=== PATIENT | male | born 1990 | race Hispanic/Latino ===

== ENCOUNTER 2021-10-26 00:02 | Emergency (ER) | payer SELFPAY ==
[2021-10-26 01:56] LABS: #Basophils 0.1 thou/uL (0.0-0.2); #Eosinphils 0.3 thou/uL (0.0-0.7); #Lymphocytes 2.4 thou/uL (1.20-3.40); #Monocytes 0.7 thou/uL (0.11-0.59); #Neutrophils 3.1 thou/uL (1.40-6.50); %Basophils 1.2 % (0.0-1.0); %Eosinophils 4.5 % (0.0-10.0); %Lymphocytes 36.4 % (21.0-51.0); %Monocytes 11.2 % (0.0-10.0); %Neutrophils 46.7 % (42.0-75.0); Hemoglobin 16.8 g/dL (14.0-18.0); Mean Corpuscular HGB CONC 35.6 g/dL (32.0-36.0); Mean Corpuscular Hemoglobin 34.5 pg (27.0-31.0); Mean Corpuscular Volume 96.9 fL (78.0-98.0); Mean Platelet Volume 8.9 fL (7.4-10.4); Platelet Count 220 thou/uL (130-400); RBC Distribution Width 12.2 % (11.5-14.5); Red Blood Cell (RBC) Count 4.86 mill/uL (4.70-6.10); White Blood Cell (WBC) Count 6.6 thou/uL (4.8-10.8)
[2021-10-26 02:05] LABS: ALT (SGPT) 14 U/L (8-55); AST (SGOT) 17 U/L (5-34); Albumin 4.2 g/dL (3.5-5.0); Alkaline Phosphatase 85 U/L (40-110); Anion Gap 11 mmol/L (10-20); BUN (Urea Nitrogen) 11 mg/dL (8.9-20.6); Bilirubin, Total 1.2 mg/dL (0.2-1.2); Calc. Creatinine Clearance 0 mL/min (70-130); Calcium 8.7 mg/dL (7.8-10.44); Carbon Dioxide 25 mmol/L (22-29); Chloride 106 mmol/L (98-107); Globulin 2.5 g/dL (2.4-3.5); Glucose 104 mg/dL (70-105); Lipase 15 U/L (8-78); Potassium 3.7 mmol/L (3.5-5.1); Protein, Total 6.7 g/dL (6.0-8.3); Sodium 138 mmol/L (136-145)
== END 2021-10-26 03:08 | disposition home or self-care (01) ==
LOC: ERS 00:02
DX: R10.11 Right upper quadrant pain (principal); Z87.19 Personal history of other diseases of the digestive system
CPT/HCPCS: 36415; 80053; 83690; 85025; 99284

== ENCOUNTER 2021-11-09 14:51 | Observation (INO) | payer SELFPAY ==
[2021-11-09 15:14] LABS: Bilirubin Negative (Negative); Blood, Urine Negative (Negative); Clarity Clear (Clear); Glucose, Urine (Dipstick) Normal (Negative); Ketone, Urine Negative (Negative); Leukocyte Negative Leu/uL (Negative); Nitrite Negative (Negative); Protein, Urine (Dipstick) Negative (Neg-Trace); Specific Gravity, Urine 1.002 (1.002-1.036); Urobilinogen Normal mg/dL (Less than 2)
[2021-11-09 16:40] LABS: #Eosinphils 0.2 thou/uL (0.0-0.7); #Lymphocytes 1.8 thou/uL (1.20-3.40); #Monocytes 0.6 thou/uL (0.11-0.59); #Neutrophils 3.3 thou/uL (1.40-6.50); %Basophils 0.8 % (0.0-1.0); %Eosinophils 3.6 % (0.0-10.0); %Lymphocytes 30.1 % (21.0-51.0); %Monocytes 9.5 % (0.0-10.0); %Neutrophils 55.9 % (42.0-75.0); Hemoglobin 17.3 g/dL (14.0-18.0); Mean Corpuscular HGB CONC 35.9 g/dL (32.0-36.0); Mean Corpuscular Hemoglobin 33.7 pg (27.0-31.0); Mean Corpuscular Volume 93.9 fL (78.0-98.0); Mean Platelet Volume 8.2 fL (7.4-10.4); Platelet Count 250 thou/uL (130-400); RBC Distribution Width 11.8 % (11.5-14.5); Red Blood Cell (RBC) Count 5.13 mill/uL (4.70-6.10)
[2021-11-09 17:03] LABS: ALT (SGPT) 30 U/L (8-55); AST (SGOT) 21 U/L (5-34); Albumin 4.6 g/dL (3.5-5.0); Alkaline Phosphatase 87 U/L (40-110); Anion Gap 15 mmol/L (10-20); BUN (Urea Nitrogen) 10 mg/dL (8.9-20.6); Bilirubin, Total 1.6 mg/dL (0.2-1.2); Calc. Creatinine Clearance 0 mL/min (70-130); Calcium 8.9 mg/dL (7.8-10.44); Carbon Dioxide 25 mmol/L (22-29); Chloride 103 mmol/L (98-107); Globulin 2.8 g/dL (2.4-3.5); Glucose 91 mg/dL (70-105); Lipase 9 U/L (8-78); Potassium 4.1 mmol/L (3.5-5.1); Protein, Total 7.4 g/dL (6.0-8.3); Sodium 139 mmol/L (136-145)
[2021-11-09] MEDS ORDERED: Ondansetron PF 4 MG/2 ML Vial ONE (17:06)
[2021-11-09] MEDS ORDERED: Ketorolac Tromethamine 30 MG/ML VIAL ONE (17:06)
[2021-11-09] MEDS ORDERED: Acetaminophen 325 MG TAB PO PRN (18:55)
[2021-11-09] MEDS ORDERED: Ondansetron ODT 4 MG TAB PO PRN (18:55)
[2021-11-09] MEDS ORDERED: Morphine 2 MG/ML VIAL SLOW IVP PRN (18:59)
[2021-11-09 19:20] LABS: SARS-CoV-2 NAA Rapid Test Not Detected (NotDetected)
[2021-11-09 19:46] VITALS: BMI 25.5
[2021-11-09] MEDS: Lactated Ringer's 1,000 ML IV SCH (20:22)
[2021-11-09] MEDS: HYDROcodone/Acetaminophen 5/325 mg Tablet PO PRN (23:13)
[2021-11-10] MEDS: HYDROcodone/Acetaminophen 5/325 mg Tablet PO PRN (05:10)
[2021-11-10] MEDS: Lactated Ringer's 1,000 ML IV SCH ×2 (05:10→15:29)
[2021-11-10] MEDS ORDERED: Midazolam HCl 2 mg/2 ml Vial ONE ×2 (08:09→08:34)
[2021-11-10] MEDS ORDERED: Fentanyl 100 MCG/2 ML VIAL ONE ×2 (08:34→09:43)
[2021-11-10] MEDS ORDERED: Iopamidol 30 ML ONE (09:43)
[2021-11-10] MEDS ORDERED: Ketorolac Tromethamine 30 MG/ML VIAL ONE (10:11)
[2021-11-10] MEDS ORDERED: Dexamethasone 20 MG/5 ML VIAL ONE (10:11)
[2021-11-10] MEDS ORDERED: PROPOFOL 200 MG/20 ML VIAL ONE (10:11)
[2021-11-10] MEDS ORDERED: Ondansetron PF 4 MG/2 ML Vial ONE (10:11)
[2021-11-10] MEDS ORDERED: Lidocaine 1% PF 5 ML VIAL ONE (10:11)
[2021-11-10] MEDS ORDERED: Oxybutynin 5 MG TAB PO PRN (10:39)
[2021-11-10] MEDS ORDERED: HYDROmorphone 2 MG/ML VIAL SLOW IVP PRN (10:47)
[2021-11-10] MEDS ORDERED: Promethazine HCl 25 MG/ML VIAL IM PRN (10:47)
[2021-11-10] MEDS ORDERED: Promethazine HCl 25 MG/ML VIAL IVPB PRN (10:47)
[2021-11-10] MEDS ORDERED: Meperidine HCl/PF 25 MG/ML VIAL SLOW IVP PRN (10:47)
[2021-11-10] MEDS ORDERED: Phenazopyridine HCl 100 MG TAB PO PRN (10:54)
[2021-11-10] MEDS ORDERED: Tamsulosin HCl 0.4 MG CAP ONE (11:00)
[2021-11-10 12:06] LABS: #Eosinphils 0.1 thou/uL (0.0-0.7); #Lymphocytes 0.9 thou/uL (1.20-3.40); #Monocytes 0.2 thou/uL (0.11-0.59); #Neutrophils 4.3 thou/uL (1.40-6.50); %Eosinophils 1.7 % (0.0-10.0); %Lymphocytes 16.4 % (21.0-51.0); %Monocytes 2.8 % (0.0-10.0); %Neutrophils 79.2 % (42.0-75.0); Hemoglobin 16.1 g/dL (14.0-18.0); Mean Corpuscular HGB CONC 35.1 g/dL (32.0-36.0); Mean Corpuscular Hemoglobin 34.1 pg (27.0-31.0); Mean Corpuscular Volume 97.1 fL (78.0-98.0); Mean Platelet Volume 8.4 fL (7.4-10.4); Platelet Count 206 thou/uL (130-400); RBC Distribution Width 11.7 % (11.5-14.5); Red Blood Cell (RBC) Count 4.72 mill/uL (4.70-6.10); White Blood Cell (WBC) Count 5.5 thou/uL (4.8-10.8)
[2021-11-10 12:20] LABS: ALT (SGPT) 23 U/L (8-55); AST (SGOT) 17 U/L (5-34); Albumin 3.8 g/dL (3.5-5.0); Alkaline Phosphatase 75 U/L (40-110); Anion Gap 12 mmol/L (10-20); BUN (Urea Nitrogen) 10 mg/dL (8.9-20.6); Bilirubin, Direct 0.6 mg/dL (0.1-0.3); Bilirubin, Total 1.9 mg/dL (0.2-1.2); Calc. Creatinine Clearance 104 mL/min (70-130); Calcium 8.3 mg/dL (7.8-10.44); Carbon Dioxide 26 mmol/L (22-29); Chloride 105 mmol/L (98-107); Glucose 90 mg/dL (70-105); Potassium 4.3 mmol/L (3.5-5.1); Protein, Total 6.2 g/dL (6.0-8.3); Sodium 139 mmol/L (136-145)
[2021-11-10 12:30] LABS: INR-International Normal Ratio 1.1; Prothrombin Time 14.2 sec (12.0-14.7)
[2021-11-10 16:45] VITALS: BP 118/74; TEMP 98.5
[2021-11-10 17:04] LABS: HBCM Index 0.08 S/CO (0-0.79); HBSAB Concentration Less than 8.00 mIU/mL; HBSAg Index 0.34 S/CO (0-0.99); HIV (1/2) Antibody/Antigen Non-Reactive (NonReactive); HIV 1/2 INDEX 0.07 S/CO (<1.00); Hep B Surf AB Non-Reactive (NonReactive); Hep B Surf Ag Non-Reactive S/CO (NonReactive); Hep C IgG Ab Non-Reactive (NonReactive); Hep C Index 0.13 S/CO (0-0.79); Hepatitis B Core IgM Abs Non-Reactive (NonReactive)
[2021-11-10 18:36] LABS: Syphilis Antibody Nonreactive (Nonreactive); Syphilis Antibody Index 0.03 S/CO (<1.00 Non-Reactive)
[2021-11-10] MEDS ORDERED: Docusate 100 MG CAP PO SCH (21:00)
[2021-11-11] MEDS ORDERED: Tamsulosin HCl 0.4 MG CAP PO SCH (09:00)
== END 2021-11-10 17:16 | disposition home or self-care (01) ==
LOC: ERS 14:51 → T4-B 18:22 → INTOOBSV 19:34 → OBSVTOIN 19:34
PROVIDERS: ADMIT Student in an Organized Health Care Education/Training Program; ATTEND Student in an Organized Health Care Education/Training Program
PROC: 0T9630Z Drainage of Right Ureter with Drainage Device, Percutaneous Approach (ICD-10-PCS; principal; 2021-11-10)
PROC: 0T768DZ Dilation of Right Ureter with Intraluminal Device, Via Natural or Artificial Opening Endoscopic (ICD-10-PCS; 2021-11-10)
DX: N13.2 Hydronephrosis with renal and ureteral calculous obstruction (principal); Q63.2 Ectopic kidney; N35.911 Unspecified urethral stricture, male, meatal; E80.6 Other disorders of bilirubin metabolism; N40.0 Benign prostatic hyperplasia without lower urinary tract symptoms; Z79.899 Other long term (current) drug therapy; Z20.822 Contact with and (suspected) exposure to COVID-19
CPT/HCPCS: 36415; 50430; 50436; 74176; 74420; 76942; 80048; 80053; 80076; 81003; 83690; 85025; 85610; 86705; 86706; 86780; 86803; 87086; 87340; 87389; 96374; 96375; C2617; G0378; J1100; J1885; J2250; J2270; J2405; J2704; J3010; J7120; Q9967; U0002

== ENCOUNTER 2021-11-14 09:43 | Outpatient (CLI) | payer SELFPAY ==
[2021-11-14 11:35] LABS: Anion Gap 15 mmol/L (10-20); BUN (Urea Nitrogen) 12 mg/dL (8.9-20.6); Calc. Creatinine Clearance 0 mL/min (70-130); Calcium 9.2 mg/dL (7.8-10.44); Carbon Dioxide 25 mmol/L (22-29); Chloride 102 mmol/L (98-107); Glucose 89 mg/dL (70-105); Potassium 5.1 mmol/L (3.5-5.1); Sodium 137 mmol/L (136-145)
[2021-11-14 11:37] LABS: PTT 26.8 sec (22.0-33.0); Prothrombin Time 10.5 sec (9.5-12.1)
[2021-11-14 12:08] LABS: Hemoglobin 16.7 g/dL (13.5-17.5); Mean Corpuscular HGB CONC 37.4 g/dL (32.0-36.0); Mean Corpuscular Hemoglobin 33.5 pg (27.0-33.0); Mean Corpuscular Volume 89.8 fl (81.2-95.1); Mean Platelet Volume 11.8 fl (7.4-10.4); Platelet Count 239 10x3/uL (150-450); RBC Distribution Width 12.1 % (11.5-14.5); Red Blood Cell (RBC) Count 4.98 10x6/uL (4.32-5.72); White Blood Cell (WBC) Count 6.9 10x3/uL (3.5-10.5)
== END 2021-11-14 09:44 | disposition home or self-care (01) ==
LOC: LABBT 09:43
PROVIDERS: ATTEND Urology
DX: Z01.812 Encounter for preprocedural laboratory examination (principal); Z20.822 Contact with and (suspected) exposure to COVID-19
CPT/HCPCS: 80048; 85027; 85610; 85730; U0003; U0005

== ENCOUNTER 2021-11-19 06:57 | Day surgery (SDC) | payer OTHER ==
[2021-11-17 14:27] VITALS: BMI 27.5
[2021-11-19] MEDS ORDERED: cefTRIAXone\\ROCEPHIN 2 GM VIAL ONE (08:14)
[2021-11-19] MEDS ORDERED: Sodium Chloride 0.9% 100 ML ONE (08:14)
[2021-11-19] MEDS ORDERED: Iopamidol 30 ML ONE (10:46)
[2021-11-19] MEDS ORDERED: fentaNYL Citrate/PF 100 MCG/2 ML SYRINGE ONE (10:53)
[2021-11-19] MEDS ORDERED: Midazolam HCl 2 mg/2 ml Vial ONE (10:53)
[2021-11-19] MEDS ORDERED: HYDROmorphone 0.5 MG/0.5 ML SYRINGE ONE (10:53)
[2021-11-19] MEDS ORDERED: SUGAMMADEX SODIUM 200 MG/2 ML VIAL ONE (10:54)
[2021-11-19] MEDS ORDERED: Phenazopyridine HCl 100 MG TAB ONE (12:51)
== END 2021-11-19 15:15 | disposition home or self-care (01) ==
LOC: SDC 06:57
PROVIDERS: ATTEND Urology
PROC: 0TC38ZZ Extirpation of Matter from Right Kidney Pelvis, Via Natural or Artificial Opening Endoscopic (ICD-10-PCS; principal; 2021-11-19)
PROC: 0T768DZ Dilation of Right Ureter with Intraluminal Device, Via Natural or Artificial Opening Endoscopic (ICD-10-PCS; principal; 2021-11-19)
DX: N20.0 Calculus of kidney (principal); Q63.2 Ectopic kidney; N40.0 Benign prostatic hyperplasia without lower urinary tract symptoms; Z79.2 Long term (current) use of antibiotics; Z79.899 Other long term (current) drug therapy
CPT/HCPCS: 74018; 74420; 82365; 88300; C2617; J0696; J1170; J2250; J3490; Q9967

== ENCOUNTER 2021-11-26 10:39 | Outpatient (CLI) | payer OTHER | END 2021-11-26 10:40 | disposition home or self-care (01) | LOC: BICRAD 10:39 | PROVIDERS: ATTEND Urology | DX: N20.0 Calculus of kidney (principal) | CPT/HCPCS: 74018 ==

== ENCOUNTER 2021-11-28 14:45 | Outpatient (CLI) | payer SELFPAY ==
[2021-11-28 16:57] LABS: INR-International Normal Ratio 0.9; PTT 25.6 sec (22.0-33.0); Prothrombin Time 10.2 sec (9.5-12.1)
[2021-11-28 17:00] LABS: Anion Gap 18 mmol/L (10-20); BUN (Urea Nitrogen) 14 mg/dL (8.9-20.6); Calc. Creatinine Clearance 0 mL/min (70-130); Calcium 9.3 mg/dL (7.8-10.44); Carbon Dioxide 25 mmol/L (22-29); Chloride 101 mmol/L (98-107); Glucose 172 mg/dL (70-105); Potassium 4.6 mmol/L (3.5-5.1); Sodium 139 mmol/L (136-145)
[2021-11-28 19:12] LABS: Hemoglobin 18.4 g/dL (13.5-17.5); Mean Corpuscular Hemoglobin 35.3 pg (27.0-33.0); Mean Corpuscular Volume 88.3 fl (81.2-95.1); Mean Platelet Volume 12.2 fl (7.4-10.4); Platelet Count 245 10x3/uL (150-450); RBC Distribution Width 12.7 % (11.5-14.5); Red Blood Cell (RBC) Count 5.21 10x6/uL (4.32-5.72); White Blood Cell (WBC) Count 8.3 10x3/uL (3.5-10.5)
== END 2021-11-28 14:46 | disposition home or self-care (01) ==
LOC: LABBT 14:45
PROVIDERS: ATTEND Urology
DX: Z01.812 Encounter for preprocedural laboratory examination (principal); N20.0 Calculus of kidney; Z20.822 Contact with and (suspected) exposure to COVID-19
CPT/HCPCS: 80048; 85027; 85610; 85730; U0003; U0005

== ENCOUNTER 2021-12-03 09:36 | Day surgery (SDC) | payer OTHER ==
[2021-12-02 10:06] VITALS: BMI 25.6
[2021-12-03] MEDS ORDERED: fentaNYL Citrate/PF 100 MCG/2 ML SYRINGE ONE (11:50)
[2021-12-03] MEDS ORDERED: Midazolam HCl 2 mg/2 ml Vial ONE (11:50)
[2021-12-03] MEDS ORDERED: HYDROmorphone 0.5 MG/0.5 ML SYRINGE ONE (11:51)
[2021-12-03] MEDS ORDERED: Iopamidol 30 ML ONE (12:26)
[2021-12-03] MEDS ORDERED: SUGAMMADEX SODIUM 200 MG/2 ML VIAL ONE (12:29)
[2021-12-03] MEDS ORDERED: Levofloxacin 500 mg/D5W 100 ml Premix Bag ONE (12:37)
[2021-12-03] MEDS ORDERED: Ondansetron PF 4 MG/2 ML Vial ONE (12:41)
[2021-12-03] MEDS ORDERED: PROPOFOL 200 MG/20 ML VIAL ONE (12:41)
[2021-12-03] MEDS ORDERED: Dexamethasone 20 MG/5 ML VIAL ONE (12:41)
[2021-12-03] MEDS ORDERED: Glycopyrrolate 0.2 MG/ML 5 ML SYRINGE ONE (12:41)
[2021-12-03] MEDS ORDERED: Ketorolac Tromethamine 30 MG/ML VIAL ONE (12:41)
[2021-12-03] MEDS ORDERED: Rocuronium Bromide 10 MG/ML (10ML VIAL) ONE (12:41)
[2021-12-03] MEDS ORDERED: Succinylcholine 200 MG/10 ml SYRINGE FS ONE (12:41)
[2021-12-03] MEDS ORDERED: Metoclopramide HCl 10 MG/2 ML VIAL ONE (12:41)
[2021-12-03] MEDS ORDERED: Lidocaine 1% PF 5 ML VIAL ONE (12:41)
[2021-12-03] MEDS ORDERED: Fentanyl 100 MCG/2 ML VIAL ONE (14:05)
[2021-12-03] MEDS ORDERED: Oxybutynin 5 MG TAB ONE (14:09)
[2021-12-03] MEDS ORDERED: Phenazopyridine HCl 100 MG TAB ONE (14:09)
== END 2021-12-03 17:34 | disposition home or self-care (01) ==
LOC: SDC 09:36
PROVIDERS: ATTEND Urology
DX: N20.0 Calculus of kidney (principal); Q63.2 Ectopic kidney; R17 Unspecified jaundice; Z79.899 Other long term (current) drug therapy
CPT/HCPCS: 74018; 74420; C2617; J1100; J1170; J1885; J1956; J2250; J2405; J2704; J2765; J3010; Q9967

== ENCOUNTER 2021-12-10 10:40 | Outpatient (CLI) | payer OTHER | END 2021-12-10 10:41 | disposition home or self-care (01) | LOC: BICRAD 10:40 | PROVIDERS: ATTEND Urology | DX: N20.0 Calculus of kidney (principal); Z96.0 Presence of urogenital implants | CPT/HCPCS: 74018 ==

== ENCOUNTER 2022-03-20 09:13 | Outpatient (CLI) | payer OTHER | END 2022-03-20 09:14 | disposition home or self-care (01) | LOC: RAD 09:13 | PROVIDERS: ATTEND Urology | DX: N20.0 Calculus of kidney (principal); R35.0 Frequency of micturition; Q63.2 Ectopic kidney; N28.89 Other specified disorders of kidney and ureter | CPT/HCPCS: 74410 ==